=== PATIENT | male | born 1940 | race Caucasian/White ===

== ENCOUNTER 2019-04-29 05:40 | Inpatient (IN) | payer MEDICARE, BC ==
[2019-04-29] MEDS ORDERED: fentaNYL Citrate/PF 2,000 MCG in Sodium Chloride 0.9% 60 ML IV SCH ×2 (05:57→10:00)
[2019-04-29] MEDS ORDERED: Fentanyl 100 MCG/2 ML VIAL ONE (05:59)
[2019-04-29 06:13] LABS: Bilirubin Negative (Negative); Blood, Urine Negative (Negative); Clarity Clear (Clear); Glucose, Urine (Dipstick) Normal (Negative); Leukocyte Negative Leu/uL (Negative); Nitrite Negative (Negative); Protein, Urine (Dipstick) 10 mg/dL (Neg-Trace); Urobilinogen Normal mg/dL (Less than 2)
[2019-04-29 06:31] LABS: Hemoglobin 13.8 g/dL (14.0-18.0); Mean Corpuscular HGB CONC 33.2 g/dL (32.0-36.0); Mean Corpuscular Hemoglobin 31.9 pg (27.0-31.0); Mean Corpuscular Volume 95.8 fL (78.0-98.0); Platelet Count 304 thou/uL (130-400); RBC Distribution Width 12.3 % (11.5-14.5); Red Blood Cell (RBC) Count 4.33 mill/uL (4.70-6.10); White Blood Cell (WBC) Count 20.6 thou/uL (4.8-10.8)
[2019-04-29 06:36] LABS: INR-International Normal Ratio 1.1; PTT 35.6 SEC (22.9-36.1); Prothrombin Time 14.3 SEC (12.0-14.7)
[2019-04-29 06:40] LABS: Actual Bicarbonate (HCO3a) 16.5 mEq/L (22-28); Analyzer IN Cardio ER; Base Excess (BEa) -11.1 mEq/L (-2.0 to +3.0); Calcium, Ionized 1.12 mmol/L (1.12-1.30); Carboxyhemoglobin (COHb) 4.2 gm% (0.0-3.0); Hemoglobin (Hb) 12.1 g/dL (14.0-18.0); Potassium - ABG Lab 4.16 mmol/L (3.70-5.30)
[2019-04-29 06:45] LABS: Band 3 % (5-11); Eosinophils 11 % (0-10); Lymphocytes 20 % (21-51); MDiff Complete? YES; Metamyelocyte 1 % (0-0); Monocytes 2 % (0-10); Neutrophil 63 % (42-75)
[2019-04-29] MEDS ORDERED: cefTRIAXone\\ROCEPHIN 2 GM VIAL ONE (06:52)
[2019-04-29 06:59] LABS: O2 Tension (PaO2) 545.3 mmHg (> 70.0)
[2019-04-29 07:00] LABS: ALT (SGPT) 36 U/L (8-55); AST (SGOT) 50 U/L (5-34); Albumin 3.4 g/dL (3.4-4.8); Alcohol Less than 10 mg/dL (Less than 10); Alkaline Phosphatase 114 U/L (40-150); Anion Gap 22 mmol/L (10-20); BUN (Urea Nitrogen) 34 mg/dL (8.4-25.7); Bilirubin, Total 0.3 mg/dL (0.2-1.2); Calc. Creatinine Clearance 0 mL/min (70-130); Calcium 8.8 mg/dL (7.8-10.44); Carbon Dioxide 16 mmol/L (23-31); Chloride 101 mmol/L (98-107); Estimated GFR-MDRD 34; Globulin 3.3 g/dL (2.4-3.5); Glucose 278 mg/dL (83-110); Lipase 56 U/L (8-78); Potassium 4.7 mmol/L (3.5-5.1); Protein, Total 6.7 g/dL (5.8-8.1); Sodium 134 mmol/L (136-145)
--- NOTE | 2019-04-29 07:21 | CT ---
CT BRAIN WITHOUT CONTRAST: Date: 04/29/19 INDICATION: 79-year-old male, Level I trauma, unwitnessed fall, with agonal respirations and a GCS of 6. COMPARISON: None. FINDINGS: No acute infarct, hemorrhage, or hydrocephalus is present. Septum pellucidum and third ventricle are midline. Mastoid air cells are clear. There is mild mucosal thickening within the ethmoid air cells. The skull is intact. IMPRESSION: No acute intracranial abnormality. POS: BH
[2019-04-29] MEDS ORDERED: Norepinephrine 4 MG/4 ML VIAL ONE (07:33)
[2019-04-29] MEDS ORDERED: Adacel (T-DAP) 0.5 ML SYRINGE ONE (07:37)
--- NOTE | 2019-04-29 07:39 | CT ---
CT CERVICAL SPINE WITHOUT CONTRAST: INDICATION: Level I trauma. History of unwitnessed fall with a TCS of 6 and agonal respirations requiring intuba tion. Concern for possible neck injury. COMPARISON: None. FINDINGS: There is moderate multilevel spondylosis of the cervical spine. Craniocervical junction is within no rmal limits. No acute fracture or subluxation is evident. Prevertebral soft tissues are normal appe aring. There is partial visualization of an ET tube no active disease gastric catheter. There is em physematous change involving the lung apices with some mild pleural parenchymal opacities. IMPRESSION: 1. No acute fracture or subluxation demonstrated. 2. Moderate cervical spondylosis. POS: BH
--- NOTE | 2019-04-29 08:07 | CT ---
CT OF THE CHEST AND ABDOMEN AND PELVIS WITH IV CONTRAST: INDICATION: History of a level I trauma, unwitnessed fall with a GCS of 6 and agonal respirations requiring intub ation. The patient also has a history of lung cancer. COMPARISON: None. FINDINGS: There is a 9.7 x 5.9 cm left hilar mass that demonstrates mediastinal invasion and postobstructive co nsolidation of the left upper lobe. There is extensive lymphadenopathy of the left hilar region, med iastinum, and left supraclavicular region consistent with metastatic lymphadenopathy. One of the lar gest lymph nodes of the mediastinum measures 2.6 cm within the AP window. There are enlarged lymph no roshan of the subcarinal region, right paratracheal region, and left hilum. There is severe emphysema. There are small bilateral pleural effusions, left greater than right. No pneumothorax is demonstrated. There is a right chest wall port in place. The patient is intubated with the ET tube tip ending just distal to the thoracic inlet. Gastric catheter is present projectin g into the body of the stomach. There are mitral annular coronary artery calcifications. There are 2 nodules involving the right adrenal gland which cannot be further characterized. One is seen within the lateral limb measuring 9 mm. One is seen within the medial limb measuring 1.2 cm. T he left adrenal gland is normal-appearing. No focal hepatic lesion is evident. No acute traumatic injury is seen involving the spleen. There i s a hypodensity involving the left mid kidney that could not be further characterized. There is a 3 cm infrarenal abdominal aortic aneurysm. There are moderate to severe calcifications in volving the abdominopelvic vasculature. There is a Youssef catheter in the decompressed bladder. There is scattered colonic diverticula. Ther e is an anterior abdominal wall hernia containing fat. Small bowel is within normal caliber. No srikanth e fluid or free air is evident within the abdomen and pelvis. OSSEOUS STRUCTURES: No definite acute fracture or subluxation is evident. There is scattered degenerative and osteoarthr itic change. No destructive osteolytic or osteoblastic lesion is identified. IMPRESSION: 1. No definite acute traumatic injury involving the chest, abdomen, and pelvis. 2. Large left hilar mass with mediastinal invasion and postobstructive pneumonia/atelectasis involvi ng the left upper lobe. 3. Extensive mediastinal, left hilar, and left supraclavicular lymphadenopathy consistent with malig nant lymph node spread of disease. 4. Small bilateral pleural effusions with severe emphysema. 5. Right adrenal nodules, incompletely characterized. Metastatic disease is not excluded. PET scan may be helpful. 6. Left renal hypodensities difficult to fully characterize on the current examination. 7. Anterior abdominal wall hernia containing fat. 8. Small infrarenal abdominal aortic aneurysm measuring 7 mm. 9. Colonic diverticulosis. POS: BH
--- NOTE | 2019-04-29 08:09 | CT ---
CT OF THE FACE WITHOUT CONTRAST: INDICATION: History of fall with facial injury and level I trauma. FINDINGS: There is a comminuted bilateral nasal bone fracture, left greater than right, with slight deviation o f the nasal bones to the right. There is extensive soft tissue swelling over the nasal bridge. No a dditional displaced facial fracture is evident. There is mucosal thickening within the ethmoid air c ells. Small air fluid level is seen within the left maxillary sinus. The patient is intubated with gastric catheter placement. Visualized intracranial contents are unremarkable-appearing. The patien t is edentulous. Visualized orbits are preserved. The globes are intact. The lenses are in place. IMPRESSION: 1. Bilateral nasal bone fracture with slightly more comminution affecting the left aspect of the germaine al bone with slight deviation of the nasal bones to the right. 2. Findings concerning the CT of the face, CT of the brain, CT of the cervical spine, and CT of the chest, abdomen, and pelvis were relayed to Dr. Dent in a phone call at 6:54 a.m. on 04/29/2019. CODE CR POS: TAN
[2019-04-29 09:12] LABS: INR-International Normal Ratio 1.1; PTT 24.9 SEC (22.9-36.1); Prothrombin Time 14.3 SEC (12.0-14.7)
[2019-04-29] MEDS ORDERED: Norepinephrine 8 MG/0.9% NS 250 ML IVPB PRN (09:18)
[2019-04-29] MEDS ORDERED: CCU Electrolyte Replacement 1 EACH IVPB ONE (09:18)
--- NOTE | 2019-04-29 09:18 | RAD ---
PORTABLE CHEST: DATE: 04/29/2019. PROVIDED CLINICAL HISTORY: Fall. FINDINGS: No comparisons. There is somewhat mass-like parenchymal opacity involving the left hilar and suprahi lar regions. This is superimposed upon diffuse prominence of the pulmonary interstitium. A right IJ implanted port is partially visualized, the tip of which projects in the expected location of the ca voatrial junction. An endotracheal tube is noted, the tip of which projects slightly below the level of the thoracic inlet. An enteric catheter is noted, the tip of which is not visualized, but the pr oximal sidehole lucency overlies the left upper quadrant. No definite evidence for pleural fluid or pneumothorax with limitations due to the supine nature of the study. IMPRESSION: Mass-like left hilar/suprahilar opacity. Please correlate with subsequently performed CT. POS: TPC
[2019-04-29 09:20] LABS: Lactic Acid 2.3 mmol/L (0.5-2.2)
[2019-04-29] MEDS ORDERED: Dextrose 5% in Water 1,000 ML IV PRN (09:20)
[2019-04-29] MEDS ORDERED: Dextrose 50% Abboject 50 ML SYRINGE SLOW IVP PRN (09:20)
[2019-04-29] MEDS ORDERED: Acetaminophen 325 MG TAB PO PRN (09:21)
[2019-04-29 09:25] LABS: ALT (SGPT) 32 U/L (8-55); AST (SGOT) 49 U/L (5-34); Albumin 2.8 g/dL (3.4-4.8); Alkaline Phosphatase 87 U/L (40-150); Anion Gap 13 mmol/L (10-20); BUN (Urea Nitrogen) 33 mg/dL (8.4-25.7); Bilirubin, Total 0.3 mg/dL (0.2-1.2); CK (CPK) 71 U/L (30-200); Calc. Creatinine Clearance 0 mL/min (70-130); Calcium 7.6 mg/dL (7.8-10.44); Carbon Dioxide 19 mmol/L (23-31); Chloride 108 mmol/L (98-107); Estimated GFR-MDRD 43; Globulin 2.7 g/dL (2.4-3.5); Glucose 138 mg/dL (83-110); Potassium 4.5 mmol/L (3.5-5.1); Protein, Total 5.5 g/dL (5.8-8.1); Sodium 135 mmol/L (136-145)
[2019-04-29] MEDS ORDERED: Ventilator Sedation Protocol 1 EACH FS SCH (09:30)
[2019-04-29] MEDS ORDERED: Vancomycin HCl 1.5 GM in Sodium Chloride 0.9% 250 ML 300 ML IVPB SCH (09:30)
[2019-04-29 09:33] LABS: Platelet Count 304 thou/uL (130-400)
[2019-04-29 09:40] LABS: INR-International Normal Ratio 1.1; PTT 24.9 SEC (22.9-36.1); Prothrombin Time 14.3 SEC (12.0-14.7); Troponin I 0.122 ng/mL (< 0.028)
[2019-04-29 09:49] LABS: Fibrinogen 333 mg/dL (253-463)
[2019-04-29] MEDS ORDERED: Propofol 1,000 MG/100 ML VIAL IV ONE (09:49)
[2019-04-29] MEDS ORDERED: Potassium Phosphate 9 MMOL in Sodium Chloride 0.9% 100 ML IVPB PRN (09:59)
[2019-04-29] MEDS ORDERED: Magnesium Oxide 400 MG TAB PO PRN ×2 (09:59)
[2019-04-29] MEDS ORDERED: PHOS-NAK 1 PKT PACK PO PRN ×2 (09:59)
[2019-04-29] MEDS ORDERED: Potassium Chloride 20 MEQ TAB PO PRN (09:59)
[2019-04-29] MEDS ORDERED: CCU ELECTROLYTE REPLACEMENT PROTOCOL FS PRN (09:59)
[2019-04-29] MEDS ORDERED: Potassium Chloride 40 MEQ in Sodium Chloride 0.9% 250 ML 250 ML IVPB PRN (09:59)
[2019-04-29] MEDS ORDERED: Magnesium 2 GM/50 ML 2 GM in Premix Bag 1 BAG IVPB PRN (09:59)
[2019-04-29] MEDS ORDERED: Potassium Phosphate 12 MMOL in Sodium Chloride 0.9% 250 ML 250 ML IV PRN (09:59)
[2019-04-29] MEDS ORDERED: Potassium Chloride 40 MEQ in Premix Bag 1 BAG IVPB PRN (09:59)
[2019-04-29] MEDS ORDERED: Potassium Phosphate 15 MMOL in Sodium Chloride 0.9% 250 ML 250 ML IV PRN (09:59)
[2019-04-29] MEDS ORDERED: Propofol BOLUS 1,000 MG/100 ML VIAL IV PRN (10:00)
[2019-04-29] MEDS ORDERED: Lorazepam 2 MG/ML VIAL SLOW IVP PRN (10:00)
[2019-04-29] MEDS ORDERED: DISCONTINUE PREVIOUS NARCOTIC PAIN MEDICATIONS AND BENZODIAZEPINES FS SCH (10:00)
[2019-04-29] MEDS ORDERED: Fentanyl BOLUS 250 ML IVPB PRN (10:00)
[2019-04-29] MEDS ORDERED: Morphine 2 MG/ML SYRINGE SLOW IVP PRN (10:00)
[2019-04-29 10:11] LABS: FSP-Qualitative ABNORMAL (Normal); FSP-Semiquantitative >=20 & <40 mcg/mL (Less than 5)
[2019-04-29] MEDS ORDERED: Norepinephrine 8 MG in Dextrose 5% in Water 242 ML IVPB PRN (10:15)
[2019-04-29] MEDS: Enoxaparin Sodium 40 MG/0.4 ML SYRINGE SC SCH (11:07)
[2019-04-29] MEDS: Piperacillin/Tazobactam 3.375 GM in Sodium Chloride 0.9% 100 ML IVPB SCH ×3 (11:07→22:55)
[2019-04-29] MEDS: Sodium Chloride 0.9% 1,000 ML IV SCH ×2 (11:09→23:02)
[2019-04-29 11:10] LABS: Lactic Acid 1.4 mmol/L (0.5-2.2)
[2019-04-29 11:38] LABS: Troponin I 0.173 ng/mL (< 0.028)
[2019-04-29] MEDS ORDERED: methylPREDNISolone Sod Succ 40 MG VIAL IVP SCH (12:30)
[2019-04-29] MEDS ORDERED: ISOVUE-370 76%-LOCM 1 ML ONE (12:43)
[2019-04-29] MEDS ORDERED: Ipratropium Bromide 2.5 ml Neb NEB SCH (13:00)
--- NOTE | 2019-04-29 14:50 | CON ---
DATE OF CONSULTATION: 04/29/2019 SERVICE: Pulmonary Medicine. REASON FOR CONSULTATION: ICU patient. HISTORY OF PRESENT ILLNESS: The patient is a 79-year-old white male with past medical history significant for small cell lung cancer. He got a Port-A-Cath placed recently. He has been having problems with recurrent pneumonias. Ultimately, he is going to start chemotherapy at early next week. He was actually told that he needed to be admitted to the hospital so that the therapy could be initiated as soon as possible, but he declined inpatient treatment. He was having increasing weakness and apparently fell forward and smashed his face on the floor. He did break a bone. He ended up getting intubated to protect his airway. He cannot provide any additional elements of the history at this point. It is not clear to me whether or not he was having any increasing respiratory difficulties. PAST MEDICAL HISTORY: 1. Small cell lung cancer. 2. COPD. 3. Tobacco abuse, ongoing. 4. Carotid arterial disease. 5. Abdominal aortic aneurysm. 6. Dementia. 7. Type 2 diabetes mellitus. 8. History of TIAs, multiple. 9. Genital warts. PAST SURGICAL HISTORY: 1. Repair of AAA. 2. Carotid endarterectomy. 3. Port-A-Cath placement in the right subclavian vein. SOCIAL HISTORY: He is currently smoking. He has a greater than [id number] history of smoking. The family denies excessive alcohol or illicit drug use. FAMILY HISTORY: Noncontributory. ALLERGIES: NO KNOWN DRUG ALLERGIES. MEDICATIONS: List of the patient's inpatient medications were reviewed. No specific updates were made at this time. REVIEW OF SYSTEMS: Cannot be obtained as the patient is currently intubated and sedated. PHYSICAL EXAMINATION: VITAL SIGNS: Afebrile, pulse 60, blood pressure 113/47, respirations 8, saturation 97% on 27% FiO2 and a PEEP of 5. GENERAL: The patient is intubated and sedated. HEENT: Normocephalic and atraumatic. Sclerae are white. Conjunctivae are pink. Oral mucosa is moist without lesions. He has facial trauma with ecchymoses on the forehead and blood at the nares. LUNGS: There is decreased air entry and prolonged expiratory phase, though wheezing is not excessive. There are some rhonchi. No crackles are appreciated. HEART: Normal rate, regular. ABDOMEN: Soft, nontender, and nondistended bowel sounds are positive. MUSCULOSKELETAL: No cyanosis or clubbing. There is trace pitting in bilateral lower extremities. NEUROLOGIC: Grossly nonfocal. He withdraws from all 4 extremities. LABORATORY DATA: WBC 20.6, hemoglobin 13.8, and platelets 304,000. Band count is 3% on top of 63% neutrophils. Monocytes are low. Interestingly, eosinophils are quite elevated at 11%. INR 1.1. D-dimer is 5.3. PH of 7.2, pCO2 of 43, and pO2 of 545 when he was on 100% FiO2 at the time. Creatinine 1.58, BUN 33, bicarb 19, and chloride 108. Basic metabolic profile is otherwise unremarkable. Troponin is up-trending to 0.173. Liver function studies are essentially unremarkable. Lactate was 8.4, but is clear to 1.4. Urinalysis is unremarkable. Plasma alcohol level is negative. IMAGING DATA: 1. CT of the chest, abdomen, and pelvis demonstrates no acute belly issue. He has an extensive emphysematous changes that are present. There is a left upper lobe/hilar mass present. I cannot see the most of the superior lobe. Little atelectasis is present in the bibasilar regions. There are air bronchograms present, particularly throughout the superior lingula. This likely represents a postobstructive pneumonia. 2. CT of the C-spine demonstrates no obvious osseous abnormality or subluxation. 3. CT of the brain demonstrates no intracranial abnormality. 4. CT of the facial bones demonstrates some soft tissue swelling, and fracture of one of nose bones. This is comminuted affecting the left aspect of the nasal bone with slight deviation of nasal bones to the right. ASSESSMENT: 1. Small cell lung cancer. 2. Acute hypoxic respiratory failure. 3. Healthcare-associated pneumonia, postobstructive. 4. Facial trauma with fracture of the nasal bone. 5. Chronic obstructive pulmonary disease with acute exacerbation. DISCUSSION AND PLAN: The patient is stable for transition out of this hospital to [facility]. The patient's family is requesting that we make an attempt to make this transfer. As such, we will see whether or not this lateral transfer will be approved. I will also put in a consult to Oncology. The patient would likely benefit from initiating chemotherapy as soon as possible. Pulmonary/Critical Care will continue to follow along while the patient remains inhouse. Multiple adjustments have been made to the ventilator in order to improve on minute volume, and give the patient a longer expiratory time. I am going to schedule nebulized medications, and steroids, treating this as a COPD exacerbation. CRITICAL CARE TIME: 30 minutes. Job ID: [id number] MTDD
--- NOTE | 2019-04-29 15:44 | HP ---
CHIEF COMPLAINT: Altered mental status. HISTORY OF PRESENT ILLNESS: The patient is a 79-year-old male with a history of dementia per the patient's family and also history of small cell carcinoma, recently diagnosed, who presented to the hospital with fall and altered mental status. The patient's who is at the bedside stated that they were up watching TV. When the stepped away, when she was in the other room, she heard a large sump. When she went over, she saw the patient face down. At this time, he had significant amount of bleeding and he was breathing, had a pulse and she called the EMS. The patient was intubated in the field. The patient's does not recall if the patient stood up and that is when he fell or fell from the chair to the floor. She stated that he a few days prior to this current event, he had his MediPort placed, which was last week Thursday and after that he has been having decreased appetite. Not eating or drinking very much and he was taken to the ER this past Thursday for some IV hydration. The patient's also stated that the patient was diagnosed with small cell maybe 5 to 6 weeks ago. He initially had some chest pain radiating to his left arm. He presented to [facility]. At that time, upon his cardiac evaluation, he was found to have a mass in his left lung. He was then referred to [facility] in [facility]. The patient underwent a PET scan as stated that it was contained to his lungs and at this time, he underwent a biopsy about 5 weeks ago at [facility]. The patient's also stated that after the biopsy, the patient started having some chills and at this time, there was some concern for pneumonia due to his elevated white count. He was given IV antibiotics [id number] and also was discharged home with IV antibiotics. The patient normally lives in [place]; however, he does have a home in [place], so he came here to get some rest before starting his chemotherapy, which is supposed to be next week. The patient's denies the patient having any fevers or chills. She did state that he has been feeling very cold and has a cough, however, which is normal for him. No fevers were noted per the patient's . PAST MEDICAL HISTORY: He has had a history of a ruptured aortic aneurysm with repair, carotid surgery. I am not exactly clear what surgery, general warts and dementia and apparently, it is seen that the patient's stated that he had a scan that indicated multiple numerous strokes. PAST SURGICAL HISTORY: He has had a ruptured aortic aneurysm repair and some carotid surgery. ALLERGIES: HE IS ALLERGIC TO IODINE, HE GETS A RASH AND PREDNISONE, HE BECOMES VERY AGITATED. MEDICATIONS: The patient's family was asked to bring a list of his medications. REVIEW OF SYSTEMS: Unable to obtain. The patient is currently intubated. SOCIAL HISTORY: The patient continues to smoke 2 packs on a daily basis. No alcohol use. No drug use. I did speak with the family, with the and daughter, who stated that the patient is currently a full code. PHYSICAL EXAMINATION: VITAL SIGNS: As of the following; temperature of 94.1, respirations are 20, blood pressure 109/49, 100% on ventilation and 79% on the pulse. GENERAL: The patient is intubated, sedated. Pupils are pinpoint. Per nursing staff, when the patient is moved, he does become agitated. However, he has not been currently weaned off or his sedation has not been decreased recently. CARDIOVASCULAR: S1 and S2 present. No murmurs, rubs, or gallops. LUNGS: Clear to auscultation. No rhonchi or wheezes noted. ABDOMEN: Soft. Bowel sounds are present x2. No pain upon palpation. EXTREMITIES: No edema. Pedal pulses are present x2. NEUROVASCULAR: Neurovascular-gage, again unable to obtain. The patient is currently sedated and intubated. SKIN: He has some bruising around his nasal area and his bilateral elbow area. LABORATORY RESULTS: As of the following, the patient's WBCs are 20.6, hemoglobin of 13.8, hematocrit of 41.5, and platelets of 304. His bands are 3. Chemistries; sodium of 134, potassium of 4.7, BUN of 34, and creatinine of 1.90. His glucose is 270. His lactic acid was 8.4. His troponin x1 is negative. His pH is 7.20, pO2 is 543, and pCO2 is 43. He did have multiple trauma scans including a CT chest, abdomen, and pelvis, which indicated the patient has a left hilar mass, mediastinal invasion and postobstructive pneumonia involving the left upper lobe. He also has a right adrenal nodule and he also had a facial CT and a cervical spine CT. Facial CT indicated bilateral nasal bone fracture with slightly more commuted affecting the left aspect of his nasal bone. CT head was negative. CT cervical spine, no acute fractures were noted. Just moderate cervical spondylosis. ASSESSMENT AND PLAN: The patient is a 79-year-old male who, initially presented to the hospital after a fall. 1. Acute hypoxic and hypercapnic respiratory failure. The patient currently is intubated. We will consult Pulmonary. We will start patient on some DuoNeb. He is allergic to steroids, however, is not really an allergy. Family states that he becomes agitated. We will hold off on that since he has no wheezing. We will start the patient on some broad-spectrum antibiotics. 2. Severe sepsis. The patient has been receiving 2.5 L of IV fluids. He had started the Levophed drip, however, his MAP is a very baseline. He may require Levophed at some time. We will start broad-spectrum antibiotics. His blood cultures are drawn. His urine does not appear to have significant abnormalities. I will also start him on some gentle hydration. 3. Acute metabolic encephalopathy. This is secondary to acute hypoxic and hypercapnic respiratory failure and severe sepsis. We will continue to monitor. 4. Leukocytosis. This is most likely secondary to his underlying pneumonia with bandemia. 5. Lactic acidosis. Again, this is most likely secondary from sepsis. We will continue hydration and recheck a lactic acid. 6. Acute kidney injury. Unknown the patient's baseline of creatinine. We will continue to monitor and start IV hydration. 7. History of small cell carcinoma. I will get Oncology to come and evaluate this patient. I did speak with Pulmonology and I do have the name of the patient's oncologist in [place]. His name is Dr. Sea Plascencia, phone #[phone], oncologist. 8. Deep venous thrombosis prophylaxis. We will put the patient on some SCDs and Lovenox. Job ID: [id number]
[2019-04-29] MEDS: Vancomycin HCl 1.5 GM in Sodium Chloride 0.9% 250 ML 300 ML IVPB SCH (20:18)
[2019-04-29] MEDS: HumaLOG 300 UNITS/3 ML VIAL SC PRN (20:30)
[2019-04-29] MEDS ORDERED: Vancomycin HCl 1 GM in Premix Bag 1 BAG IVPB SCH (21:00)
--- NOTE | 2019-04-29 22:00 | CON ---
DATE OF CONSULTATION: REASON FOR CONSULT: Lung cancer. HISTORY OF PRESENT ILLNESS: Mr. Lebron is a 79-year-old gentleman, who was apparently diagnosed with small-cell lung cancer 5 or 6 weeks ago. He initially declined chemotherapy, but over the last few weeks, has ultimately agreed and had a MediPort placed recently. He has been having postobstructive pneumonias and apparently was in the hospital in [place] this past Thursday. All of his medical care has been done in the [place] area. I have no source documents for this. He had a recent fall and ended up being intubated. He did break a bone in his nose. He is in the ICU and is sedated with propofol. He is also on a Levophed drip for blood pressure support. There is no family at bedside and all history was obtained from review of medical record and discussion with other doctors. PAST MEDICAL HISTORY: 1. Lung cancer. 2. COPD. 3. Tobacco abuse. 4. Carotid artery disease. 5. AAA. 6. Dementia. 7. Diabetes. 8. TIAs. 9. Genital warts. PAST SURGICAL HISTORY: 1. AAA repair. 2. Carotid endarterectomy. 3. MediPort placed. ALLERGIES: NO KNOWN DRUG ALLERGIES. HOME MEDICATIONS: 1. Aspirin. 2. B12. 3. Galantamine. 4. Hydrochlorothiazide. 5. Vascepa. 6. Losartan. 7. Metformin. 8. Metoprolol. 9. Nuplazid. FAMILY HISTORY: Unobtainable. SOCIAL HISTORY: He is . Apparently, he continues to smoke 2 packs a day. REVIEW OF SYSTEMS: Unable to obtain secondary to intubation and sedation. PHYSICAL EXAMINATION: VITAL SIGNS: Temperature is 98.5, pulse is 68, respiratory rate 12, BP is 121/50, 96% on the ventilator. GENERAL: This is a well-developed, well-nourished male, in no acute distress. HEENT: He has abrasion to his forehead and nose. NECK: He has an Maroa collar in place. CARDIOVASCULAR: Regular rate and rhythm. LUNGS: Clear anterior. ABDOMEN: Soft. NEUROLOGIC: He is on sedation while on the vent, so unable to assess. PERTINENT LABORATORY DATA AND X-RAYS: Current WBCs are 20.6, hemoglobin 13.8, hematocrit 41.5, platelet count 304,000. He has 63% neutrophils, 3% bands, 20% lymphocytes, PT 14.3, INR is 1.1, and PTT is 24.9. Sodium is 135, potassium 4.5, chloride 108, CO2 is 19, BUN is 33, creatinine 1.58. Lactic acid is 1.4. Serum 7.6, bilirubin is 0.3, AST is 49, ALT is 34, alkaline phosphatase is 87, creatine kinase is 71, troponin is 0.173. Serum total protein 5.5, albumin 2.8, globulin 2.7. Urine is negative. Brain CT showed no evidence of metastatic disease. Facial CT showed broken bone. Cervical CT showed no acute fracture. Abdominal, pelvis and chest CT showed a 9.7 x 5.9 left hilar mass. There was extensive lymphadenopathy in the left hilar, mediastinum, and left supraclavicular region. He also had severe emphysema, right adrenal gland nodules. ASSESSMENT: 1. Metastatic lung cancer. 2. Postobstructive pneumonia. 3. Acute hypoxic respiratory failure. DISCUSSION: The patient's family has requested that he be transferred to [place], where his physicians are, so he can begin chemotherapy. I believe that has been initiated and is currently pending. If he is not accepted at his facility in [place], would need medical records including path report to determine chemotherapy. Unfortunately, this gentleman was diagnosed several weeks ago as his small cell likely has continued to grow and is responsible for his weakness and falls. Case has been discussed with Dr. Uribe. There are no family at bedside. We will try to meet with him over the weekend if he stays in our facility. Thank you for the consult. Job ID: [id number]
[2019-04-29] MEDS: Propofol 1,000 MG/100 ML VIAL IV PRN (23:10)
[2019-04-30] MEDS: Piperacillin/Tazobactam 3.375 GM in Sodium Chloride 0.9% 100 ML IVPB SCH ×2 (04:21→09:39)
[2019-04-30] MEDS: Propofol 1,000 MG/100 ML VIAL IV PRN (04:25)
[2019-04-30] MEDS: HumaLOG 300 UNITS/3 ML VIAL SC PRN (04:33)
[2019-04-30 05:22] LABS: ALT (SGPT) 36 U/L (8-55); AST (SGOT) 46 U/L (5-34); Albumin 3.2 g/dL (3.4-4.8); Alkaline Phosphatase 87 U/L (40-150); Anion Gap 16 mmol/L (10-20); BUN (Urea Nitrogen) 33 mg/dL (8.4-25.7); Bilirubin, Total 0.4 mg/dL (0.2-1.2); Calc. Creatinine Clearance 39 mL/min (70-130); Calcium 8.2 mg/dL (7.8-10.44); Carbon Dioxide 17 mmol/L (23-31); Chloride 107 mmol/L (98-107); Estimated GFR-MDRD 35; Globulin 2.9 g/dL (2.4-3.5); Glucose 211 mg/dL (83-110); Magnesium 1.6 mg/dL (1.6-2.6); Potassium 4.2 mmol/L (3.5-5.1); Protein, Total 6.1 g/dL (5.8-8.1); Sodium 136 mmol/L (136-145)
[2019-04-30 05:30] VITALS: BMI 26.6
[2019-04-30 07:17] VITALS: BP 106/49
[2019-04-30] MEDS: Vancomycin HCl 1.5 GM in Sodium Chloride 0.9% 250 ML 300 ML IVPB SCH (08:38)
[2019-04-30] MEDS: Enoxaparin Sodium 40 MG/0.4 ML SYRINGE SC SCH (08:38)
[2019-04-30] MEDS ORDERED: methylPREDNISolone Sod Succ 40 MG VIAL IVP SCH (09:00)
[2019-04-30] MEDS ORDERED: Sodium Chloride 0.45% 1,000 ML IV SCH (10:00)
[2019-04-30] MEDS ORDERED: Magnesium 2 GM/50 ML 2 GM in Premix Bag 1 BAG IVPB SCH (10:00)
--- NOTE | 2019-04-30 10:23 | PRG ---
DATE OF SERVICE: 04/30/2019 SERVICE: Pulmonary Medicine. INTERVAL HISTORY: The patient is doing fine from respiratory standpoint. He is breathing comfortably. We have turned out his support quite a bit on the ventilator. Today, he did not miss a beat. His expiratory airflow limitation has improved a little bit. Unfortunately, the reported that the patient has an allergy to steroids. As such, they were not given to him overnight. It turns out that allergy is that he just becomes a little bit mean with her only. As such, we went ahead and discussed the risks and benefits of giving some steroids, and we ultimately decided to go ahead and move forward with that. He cannot provide any additional elements of the history. There were no events overnight otherwise. PHYSICAL EXAMINATION: VITAL SIGNS: Afebrile, pulse 112, blood pressure 153/57, respirations 24, saturation 94% on 27% FiO2, and a PEEP of 5. GENERAL: The patient is intubated and sedated. HEENT: Normocephalic and atraumatic. Sclerae white. Conjunctivae pink. Oral mucosa is moist without lesions. LUNGS: Decent air entry. Extensive rhonchi are present with prolonged expiratory phase and wheezing. HEART: Normal rate and regular. ABDOMEN: Soft. Nontender, nondistended. Bowel sounds are positive. MUSCULOSKELETAL: No cyanosis or clubbing. There is no pitting in the bilateral lower extremities. NEUROLOGIC: Grossly nonfocal. LABORATORY DATA: Creatinine 1.86 and gently uptrending, and BUN 33. Basic metabolic profile and liver function studies were otherwise unremarkable. Magnesium 1.6, phosphorus 4.0. Urinalysis is unremarkable. Blood cultures x2 are negative. ASSESSMENT: 1. Small-cell lung cancer. 2. Acute hypoxic respiratory failure. 3. Healthcare-associated pneumonia, postobstructive. 4. Facial trauma with fracture of the nasal bone. 5. Acute kidney injury. DISCUSSION PLAN: I am going to replace the patient's magnesium. I will put him on a spontaneous breathing trial. If he does fantastic, we will consider him for extubation, but cautiously so, given that he had a history of a difficult airway. He has been accepted by [facility], but they do not have a bed. As such, he will remain here until it is safe to transition. If this is going to be delayed too long, I do think it would be in the patient's best interest to go ahead and initiate chemotherapy. CRITICAL CARE TIME: 30 minutes. Job ID: [id number] MTDD
[2019-04-30] MEDS ORDERED: Prevnar 13-Val Conj/PF 0.5 ML SYRINGE IM ONE (10:45)
[2019-04-30 12:11] VITALS: TEMP 99
--- NOTE | 2019-04-30 14:57 | EKG ---
Test Reason : Blood Pressure : / mmHG Vent. Rate : 083 BPM Atrial Rate : 083 BPM P-R Int : 196 ms QRS Dur : 102 ms QT Int : 420 ms P-R-T Axes : 068 047 064 degrees QTc Int : 493 ms Normal sinus rhythm Possible Left atrial enlargement Anteroseptal infarct , age undetermined Abnormal ECG Confirmed by MERCEDEZ DENSON M.D. ([id number]), manuscript editor MARCUS MAY ([id number]) on 04/30/2019 2:57:22 PM Referred By: Confirmed By:MERCEDEZ DENSON M.D.
--- NOTE | 2019-04-30 21:21 | CON ---
DATE OF CONSULTATION: 04/29/2019 REASON FOR CONSULT: Fall. HISTORY OF PRESENT ILLNESS: Mr. Lebron is a 79-year-old man who had an unwitnessed ground level fall at home. Reportedly, he had gone into the next room and his heard a loud noise and when she came in, he was lying face down on the ground, bleeding from his face and breathing, but not really responsive. She called 911 and he was intubated in the field and so this level was activated as a level 1 trauma. I was present at his bedside. Shortly after his arrival, the ER physician had performed a chest x-ray and a FAST exam, neither of which showed any evidence of significant bleeding. He did have a very abnormal looking left lung, but has a history of small cell lung cancer recently diagnosed in [place]. He was intubated and sedated on my arrival. Pupils were pinpoint and he was not reacting to stimulation, although he would sometimes move his extremities slightly. PHYSICAL EXAMINATION: PELVIS: On examination, his pelvis was stable to AP and lateral compression. ABDOMEN: His abdomen was soft and nondistended. CHEST: He had a prominent aortic pulse, which felt somewhat widened. No crepitance on his chest. Diminished breath sounds and crackles in the left, but clear on the right. HEART: Regular in its rate and rhythm. He was not tachycardic, but his blood pressure was low with systolic blood pressures in the 80s. HEENT: He had signs of external bleeding from his nose, but TMs were normal and there is no other sign of external trauma. EXTREMITIES: His limbs were not deformed or swollen. The patient was en route to x-ray for a CT of head, neck, and facial bones and I added a CT of chest, abdomen, and pelvis due to his unexplained hypotension. I accompanied him to the CT scanner where no significant signs of intracranial, intrathoracic or intraabdominal bleeding were seen. His blood pressure improved somewhat with IV fluids and there was no indication for transfusion. It was felt that his hypotension was likely medical in origin as was his fall and decreased mental status. At this point, the decision was made to admit him to the ICU, to the medical service for further workup. The only significant trauma found was nasal bone fractures for which OMFS consultation was recommended. At the time that I initially evaluated him in the emergency room, past medical and surgical history were not readily available as there was no family at the bedside and the patient was unresponsive. The patient was seen in conjunction with Jazmin Mcconnell the trauma PA. Job ID: [id number]
--- NOTE | 2019-04-30 23:50 | DIS ---
DATE OF ADMISSION: 04/29/2019 DATE OF DISCHARGE: 04/30/2019 DISCHARGE DIAGNOSES: 1. Acute hypoxic hypercapnic respiratory failure. 2. Pneumonia, postobstructive. 3. Small-cell carcinoma, new diagnosis. 4. Acute kidney injury. HOSPITAL COURSE: The patient is a 79-year-old male, who initially came in as a trauma after a fall. He did have a trauma workup, which indicated on the facial CT that he does have a bilateral nasal bone fracture slightly more comminuted affecting the left aspect of his nasal bone. The patient initially was intubated. He was extubated on 04/30 by Pulmonary. The patient normally lives in [place]. He was recently diagnosed with small cell carcinoma and was supposed to start chemotherapy. The patient's family wanted the patient to be transferred to [facility], which was done. The patient will be transferred to [facility] for starting of the treatment. Family has been updated. The patient was extubated. He is doing well. We will continue the broad-spectrum antibiotics. Lactic acidosis has improved and so is his creatinine, it went from 1.9 to 1.8 today. HOME MEDICATIONS: His home medications will be continued including; 1. Losartan 50 mg daily. 2. Aspirin 81 mg daily. 3. Hydrochlorothiazide 12.5 mg daily. 4. Zosyn. 5. DuoNeb. 6. Solu-Medrol. PHYSICAL EXAMINATION: VITAL SIGNS: Temperature of 98.8, pulse of 100, oxygen saturation 94% on 2 L, blood pressure 126/71. GENERAL: He is awake, alert, and oriented x3. Does not appear in distress. He does have a cervical collar on. CV: S1 and S2 present. No murmurs, rubs, or gallops. ABDOMEN: Soft and nontender. Bowel sounds are present x2. DISCHARGE INSTRUCTIONS: The patient will be discharged to [facility]. I have called report and family has been updated and also his Oncologist has been updated. Job ID: [id number]
--- NOTE | 2019-05-02 11:56 | PQF ---
CLINICAL DOCUMENTATION IMPROVEMENT CLARIFICATION FORM: ICD-10 Updated PLEASE DO AN ADDENDUM TO THE PROGRESS NOTE WITH ANY DOCUMENTATION UPDATES OR ADDITIONS AND CARRY THROUGH TO DC SUMMARY. THANK YOU. DATE: 05/02/19 ATTN: DR. MEYERS Please exercise your independent, professional judgment in responding to the clarification form. Clinical indicators are provided on the bottom of this form for your review Please check appropriate box(s) to clarify if the following diagnosis has been ruled in or ruled out: "SEPSIS" [ ] Ruled in diagnosis [ x] Continue to treat [ ] Resolved [ ] Ruled out diagnosis [ ] Cannot rule out diagnosis [ ] Other diagnosis [ ] Unable to determine In addition, please specify: Present on Admission (POA): [ x ] Yes [ ] No [ ] Unable to determine For continuity of documentation, please document condition throughout progress notes and discharge summary. Thank You. CLINICAL INDICATORS - SIGNS / SYMPTOMS / LABS H&P 03/29: "SEVERE SEPSIS" ER NOTE: BP 85/56 WBC 04/29: 20.6 LACTIC ACID 04/29: 8.4 RISKS: PNEUMONIA (H&P 04/29) TREATMENT: BLOOD CULTURES 04/29 IV VANCOMYCIN (ER-04/30) IV FLUIDS (ER-04/29) IV ROCEPHIN (ER) LEVOPHED (04/29) IV ZOSYN (04/29-04/30) CRITICAL CARE MONITORING [employer] Winform Viewer (This form is maintained as a part of the permanent medical record) 2014 [employer]. All Rights Reserved [email or web address] Office: [phone] [facility]ENTERThomas
== END 2019-04-30 15:15 | disposition critical access hospital (66) | DRG 871 ==
LOC: ERS 05:40 → CCU 09:59
PROVIDERS: ADMIT Internal Medicine; ATTEND Internal Medicine
PROC: 5A1945Z Respiratory Ventilation, 24-96 Consecutive Hours (ICD-10-PCS; principal; 2019-04-29)
PROC: 3E033XZ Introduction of Vasopressor into Peripheral Vein, Percutaneous Approach (ICD-10-PCS; 2019-04-29)
DX: A41.9 Sepsis, unspecified organism (principal); J18.9 Pneumonia, unspecified organism; J96.01 Acute respiratory failure with hypoxia; G93.41 Metabolic encephalopathy; J96.02 Acute respiratory failure with hypercapnia; E87.2 Acidosis; N17.9 Acute kidney failure, unspecified; C34.90 Malignant neoplasm of unspecified part of unspecified bronchus or lung; J44.1 Chronic obstructive pulmonary disease with (acute) exacerbation; J44.0 Chronic obstructive pulmonary disease with (acute) lower respiratory infection; R65.20 Severe sepsis without septic shock; F03.90 Unspecified dementia, unspecified severity, without behavioral disturbance, psychotic disturbance, mood disturbance, and anxiety; I25.10 Atherosclerotic heart disease of native coronary artery without angina pectoris; Y95 Nosocomial condition; E11.9 Type 2 diabetes mellitus without complications; Z88.8 Allergy status to other drugs, medicaments and biological substances; Z79.84 Long term (current) use of oral hypoglycemic drugs; Z79.82 Long term (current) use of aspirin; Z86.73 Personal history of transient ischemic attack (TIA), and cerebral infarction without residual deficits; Z87.891 Personal history of nicotine dependence; S02.2XXA Fracture of nasal bones, initial encounter for closed fracture; W19.XXXA Unspecified fall, initial encounter; Y92.019 Unspecified place in single-family (private) house as the place of occurrence of the external cause
CPT/HCPCS: 36415; 36416; 70450; 70486; 71045; 71260; 72125; 74177; 80053; 80307; 81003; 82550; 82805; 83605; 83690; 83735; 84100; 84484; 85025; 85049; 85300; 85362; 85379; 85384; 85610; 85730; 86850; 86900; 86901; 87040; 90715; 93005; 94002; 94003; 94640; 94760; G0390; J0696; J1650; J2543; J2704; J2920; J3010; J3370; J3475; J3490; J7050; J7070; J7620; Q9966